=== PATIENT | male | born 1995 | race African-American/Black ===

== ENCOUNTER 2019-07-09 08:06 | Emergency (ER) | payer OTHER ==
[~2019-07-09] VITALS: Ht 177.8 cm; Wt 81.2 kg
[2019-07-09 08:12] VITALS: Ht 177.8 cm; Wt 81.2 kg
[2019-07-09 10:05] VITALS: BP 126/68
== END 2019-07-09 10:05 | disposition home or self-care (01) ==
LOC: ED 08:06
DX: J20.9 Acute bronchitis, unspecified (principal)
CPT/HCPCS: J7512; Q0092